=== PATIENT | male | born 1965 | race Caucasian/White ===

== ENCOUNTER 2018-11-05 21:23 | Observation (INO) | payer OTHER ==
[2018-11-05] MEDS ORDERED: FAMOTIDINE 20 MG/NACL 50 ML IV ONE (21:45)
[2018-11-05] MEDS ORDERED: HYDROmorphONE/DILAUDID 2 MG/ML INJ IVP ONE (21:45)
[2018-11-05] MEDS ORDERED: NS 1,000 ML IV ONE (21:45)
[2018-11-05] MEDS ORDERED: ONDANSETRON 4 MG/2 ML VIAL IVP ONE (21:45)
[2018-11-05] MEDS ORDERED: PANTOPRAZOLE SODIUM 40 MG VIAL IVP ONE (21:46)
[2018-11-05] MEDS ORDERED: HYDROmorphONE/DILAUDID 1 MG/ML INJ ONE (21:53)
--- NOTE | 2018-11-05 21:53 | EDPHY ---
H & P Time Seen by Provider: 11/05/18 21:33 HPI/ROS: HPI Abdominal pain. 53-year-old male by private vehicle with his . This patient has had ongoing mid to epigastric and right upper quadrant abdominal pain since February of this past year. He reports the pain usually comes on in waves after eating a meal. He reports that it has been relatively short-lived. He had a cholecystectomy years ago. He reports that this last Tuesday he had an episode of this pain which lasted a lot longer than it usually does. He states that it was worse with movement such as bending over and taking a deep breath. He reports that it is the same pain he has had in the past but just more intense. He describes it as aching and cramping. He saw his primary care physician on Tuesday. Blood work was done which was unremarkable according to the patient. She ordered stool studies for H pylori testing. He reports that at 3:45 p.m. He developed this pain again and has persisted since that time. He has not had any vomiting. His last meal was lunch 2 hr before onset of pain. He denies any bloody or melenic stool. Last bowel movement was this morning. No associated diarrhea. ROS: Constitutional: No fever, no chills. No weakness. Eyes: No discharge. No changes in vision. ENT: No sore throat. No nasal congestion or rhinorrhea. Respiratory: No cough. No shortness of breath. Cardiac: No chest pain, no palpitations. Gastrointestinal: As above, no vomiting, no diarrhea. Genitourinary: No hematuria. No dysuria or increased frequency with urination. Musculoskeletal: No back pain. No neck pain. No myalgias or arthralgias. Skin: No rashes. Neurological: No headache. No focal weakness or altered sensation. Past medical history: Cholecystectomy, depression, hyperlipidemia. Social history: Nonsmoker. No alcohol. Here with his . Physical Exam: General Appearance: Alert, no distress. This patient is responding to questions appropriately and in full sentences. This patient appears well- hydrated and well-nourished. Eyes: Pupils equal and round no pallor or injection. No lid edema, erythema or injection. Respiratory: There are no retractions, lungs are clear to auscultation with good air movement bilaterally. Cardiovascular: Regular rate and rhythm. No murmur. Gastrointestinal: Abdomen is soft with mild and vague right upper quadrant tenderness on palpation at the mid axillary line 2-3 cm below the costal margin , no masses, bowel sounds normal. No focal tenderness at McBurney's point. No Kaur sign. Neurological: Motor sensory function is grossly intact. Cranial nerves are normal. Gait is normal. Skin: Warm and dry, no rashes. Musculoskeletal: Neck is supple and nontender. Extremities are symmetrical. All joints range without pain or impingement. Psychiatric: No agitation. No depression. Database: EKG: EKG time is 9:47 p.m.; EKG shows a narrow complex normal sinus rhythm with a ventricular rate of 67. Right bundle branch block. Subtle depressions in V2 and V3. The TX, QRS, QT intervals are within normal limits. There are no ST-T wave changes indicative of ischemic or injury pattern. Patient has a history of RBBB. Interpreted by me. Imaging: Upright abdominal x-ray series: Significant for constipation, status post cholecystectomy. No obstructive process. No free air. Interpreted by me. Procedures: Emergency department course: Triage vitals reviewed. He is moderately hypertensive. Vital signs are otherwise normal. IV was placed. He was started on IV normal saline with 1 L to be given over the next hour. My suspicion is for a duodenal ulcer based on the location of his pain and the fact that he has had a cholecystectomy. He was given 0.5 mg of IV hydromorphone for pain and 4 mg of IV Zofran for nausea. He received IV Pepcid and Protonix as well. 10:45 p.m., the patient was re-evaluated, resting comfortably at this time. His pain is currently well controlled. Results of his diagnostic workup in the emergency department discussed with him and his . He has a significant elevation of his LFTs as well as conjugated bilirubin. Given how severe his pain was. Plan at this time will be to admit him to the hospitalist service. The patient and his endorse this plan I spoke with the on-call radiologist Dr. Anam Valiente. Case discussed with him in detail. He recommends a right upper quadrant ultrasound initially and then possibly a MRCP or HIDA scan tomorrow morning if the ultrasound is unremarkable. Hospitalist paged for admission. 10:55 p.m., I spoke with the on-call hospitalist, Dr. Matos. Case discussed and he with him in detail. He accepts this patient for admission but asked that we get a CT scan contrast enhanced instead of the ultrasound initially. He will follow up with an ultrasound if needed. He felt that this was a better study to look for a mass which would better explain the patient's progressive symptoms. CT scan results will be followed up by Dr. Matos. The patient and his were informed of imaging plan and plan for admission. His remaining emergency department course under my care has been uneventful. He was admitted to the hospitalist service in stable condition. Differential Diagnosis: The differential diagnosis on this patient includes but is not limited to choledocholithiasis, hepatitis, duodenal ulcer, gastric ulcer, colitis. Volvulus, perforated peptic ulcer, cholecystitis, hepatitis, pancreatitis unlikely. This represents a partial list of diagnoses considered. These considerations are based on history, physical exam, past history, reassessment and diagnostic testing. Smoking Status: Never smoked Constitutional: Initial Vital Signs Temperature (C) 36.6 C 11/05/18 21: Heart Rate 69 11/05/18 21:27 Respiratory Rate 18 11/05/18 21:27 Blood Pressure 161/98 H 11/05/18 21:27 O2 Sat (%) 98 11/05/18 21:27 O2 Delivery Mode Room Air Allergies/Adverse Reactions: No Known Allergies Allergy (Verified 11/06/18 09:47) Home Medications: Medication Instructions Recorded Omeprazole 20 mg PO DAILY 02/18/14 Methylphenidate HCl [Ritalin 5mg 5 mg PO BID@,14 PRN 11/05/18 (*)] ARIPiprazole [Abilify 2 mg (*)] 2 mg PO DAILY 11/06/18 traZODone [traZODONE 50MG (*)] 50 mg PO HS 11/06/18 Medical Decision Making - Data Points Laboratory Results: Laboratory Results 11/05/18 21:40 11/05/18 21:40 Medications Given: Discontinued Medications Enoxaparin Sodium (Lovenox) 40 mg SC DAILY FRANKIE Stop: 05/05/19 08:59 Last Admin: 11/06/18 08:06 Dose: 40 mg Hydromorphone HCl (Dilaudid) 0.5 mg IVP EDNOW ONE Stop: 11/05/18 21:46 Last Admin: 11/05/18 21:58 Dose: 0.5 mg Sodium Chloride (Ns) 1,000 mls @ 0 mls/hr IV EDNOW ONE; Wide Open PRN Reason: Protocol Stop: 11/05/18 21:46 Last Admin: 11/05/18 21:57 Dose: 1,000 mls Famotidine/Sodium Chloride (Pepcid 20 Mg (Premix)) 50 mls @ 200 mls/hr IV EDNOW ONE Stop: 11/05/18 21:59 Last Admin: 11/05/18 21:58 Dose: 50 mls Potassium Chloride/Dextrose/Sod Cl (D5w 1/2 Ns W/ 20 Kcl/L) 1,000 mls @ 100 mls /hr IV CONT FRANKIE Stop: 05/05/19 11:29 Last Admin: 11/06/18 11:57 Dose: 1,000 mls Ampicillin Sodium/Sulbactam (Sodium 3 gm/ Sodium Chloride) 100 mls @ 200 mls/ hr IV ONCE ONE PRN Reason: Protocol Stop: 11/06/18 13:29 Last Admin: 11/06/18 12:47 Dose: 100 mls Indomethacin (Indocin Rectal) Confirm Administered Dose 100 mg TX .STK-MED ONE Stop: 11/06/18 12:39 Last Admin: 11/06/18 13:30 Dose: 100 mg Midazolam HCl (Versed) 2 mg IVP ONCE ONE Stop: 11/06/18 12:48 Last Admin: 11/06/18 14:37 Dose: Not Given Ondansetron HCl (Zofran) 4 mg IVP EDNOW ONE Stop: 11/05/18 21:46 Last Admin: 11/05/18 21:57 Dose: 4 mg Pantoprazole Sodium (Protonix) 40 mg IVP EDNOW ONE Stop: 11/05/18 21:47 Last Admin: 11/05/18 22:02 Dose: 40 mg Point of Care Test Results: Chemistry 11/05/18 22:08 POC Troponin I 0.00 ng/mL ng/mL (0.00-0.08) Departure - Departure Disposition: [facility] Inpatient Acute Clinical Impression: Upper abdominal pain, Elevated liver function tests
[2018-11-05 21:54] LABS: PLATELET COUNT 229 10^3/uL (150-400)
[2018-11-05] MEDS ORDERED: PANTOPRAZOLE SODIUM 40 MG VIAL ONE (22:01)
[2018-11-05] MEDS ORDERED: ONDANSETRON 4 MG/2 ML VIAL IVP PRN (22:56)
[2018-11-05] MEDS ORDERED: ACETAMINOPHEN 325 MG TAB PO PRN (22:56)
[2018-11-05] MEDS ORDERED: ONDANSETRON DISINTEGRATING 4 MG TAB PO PRN (22:56)
[2018-11-05] MEDS ORDERED: HYDROmorphONE/DILAUDID 1 MG/ML INJ IVP PRN (22:56)
[2018-11-05] MEDS ORDERED: IOPAMIDOL (ISOVUE-300) 100 ML BTL ONE (22:58)
--- NOTE | 2018-11-06 03:13 | PDGENHP ---
History and Physical - Chief Complaint Abdominal pain - History of Present Illness 53 yo M w/ hx of GERD and cholecystectomy 4 years ago presents with abdominal pain. The patient has been having post-prandial, epi-gastric/RUQ pain since February of this year. Initially it mild mild to moderate and occurred once every few weeks. Over the last few months it has increased in frequency. Then, on Tuesday, he had a severe bout of pain. This resolved after a few hours. He went to his PCP who ordered some lab work (amylase, H. Pylori) and thought this could possibly be an ulcer. Today he had a recurrence of this very severe pain about 1 hour after eating a meal so he came to the ED for evaluation. In the ED his work-up was notable for elevated transaminases. A subsequent CT of his abdomen revealed only periportal inflammation, which per radiology can be seen with hepatitis or cholangitis. At the time of my evaluation his pain has resolved after Dilaudid IV. He has no infectious signs of symptoms at this time. He is being admitted for further work-up of this. He denies significant ETOH use, APAP use, or recent illness. He also denies melena or BRBPR. Case discussed with ED physician Dr. Mcmahan; records reviewed and summarized above. History Information - Allergies/Home Medication List Allergies/Adverse Reactions: No Known Allergies Allergy (Unverified 02/18/14 01:57) Home Medications: Omeprazole 20 mg PO 02/18/14 [Last Taken Unknown] Ritalin 10mg (*) 11/05/18 [Last Taken Unknown] I have personally reviewed and updated: family history, medical history - Past Medical History GERD - Surgical History Reports: cholecystectomy - Family History Additional family history: Denies family history of liver disease of autoimmune disease. - Social History Smoking Status: Never smoked Review of Systems Review of Systems: ROS: 10pt was reviewed & negative except for what was stated in HPI & below Physical Exam Physical Exam: Temp Pulse Resp BP Pulse Ox 36.5 C 70 17 130/87 H 93 11/06/18 00:09 11/06/18 00:09 11/06/18 00:09 11/06/18 00:09 11/06/18 00:09 Constitutional: no apparent distress, not in pain Eyes: PERRL, EOMI Ears, Nose, Mouth, Throat: moist mucous membranes, no oral mucosal ulcers Cardiovascular: regular rate and rhythym, no murmur, rub, or gallop Respiratory: no respiratory distress, clear to auscultation Gastrointestinal: normoactive bowel sounds, soft, non-tender abdomen Skin: warm, normal color Musculoskeletal: full muscle strength, no muscle tenderness Neurologic: AAOx3, CN II-XII Intact Psychiatric: interacting appropriately, not anxious Lab Data & Imaging Review 11/05/18 21:40 11/05/18 21:40 WBC 7.95 10^3/uL (3.80-9.50) 11/05/18 21:40 RBC 5.17 10^6/uL (4.40-6.38) 11/05/18 21:40 Hgb 15.6 g/dL (13.7-17.5) 11/05/18 21:40 Hct 45.9 % (40.0-51.0) 11/05/18 21:40 MCV 88.8 fL (81.5-99.8) 11/05/18 21:40 MCH 30.2 pg (27.9-34.1) 11/05/18 21:40 MCHC 34.0 g/dL (32.4-36.7) 11/05/18 21:40 RDW 12.5 % (11.5-15.2) 11/05/18 21:40 Plt Count 229 10^3/uL (150-400) 11/05/18 21:40 MPV 9.7 fL (8.7-11.7) 11/05/18 21:40 Neut % (Auto) 66.1 % (39.3-74.2) 11/05/18 21:40 Lymph % (Auto) 23.1 % (15.0-45.0) 11/05/18 21:40 [place] % (Auto) 8.1 % (4.5-13.0) 11/05/18 21:40 Eos % (Auto) 1.6 % (0.6-7.6) 11/05/18 21:40 Baso % (Auto) 0.8 % (0.3-1.7) 11/05/18 21:40 Nucleat RBC Rel Count 0.0 % (0.0-0.2) 11/05/18 21:40 Absolute Neuts (auto) 5.26 10^3/uL (1.70-6.50) 11/05/18 21:40 Absolute Lymphs (auto) 1.84 10^3/uL (1.00-3.00) 11/05/18 21:40 Absolute Monos (auto) 0.64 10^3/uL (0.30-0.80) 11/05/18 21:40 Absolute Eos (auto) 0.13 10^3/uL (0.03-0.40) 11/05/18 21:40 Absolute Basos (auto) 0.06 10^3/uL (0.02-0.10) 11/05/18 21:40 Absolute Nucleated RBC 0.00 10^3/uL (0-0.01) 11/05/18 21:40 Immature Gran % 0.3 % (0.0-1.1) 11/05/18 21:40 Immature Gran # 0.02 10^3/uL (0.00-0.10) 11/05/18 21:40 Sodium 139 mEq/L (135-145) 11/05/18 21:40 Potassium 3.7 mEq/L (3.5-5.2) 11/05/18 21:40 Chloride 104 mEq/L (97-110) 11/05/18 21:40 Carbon Dioxide 27 mEq/l (22-31) 11/05/18 21:40 Anion Gap 8 mEq/L (6-14) 11/05/18 21:40 BUN 12 mg/dL (7-23) 11/05/18 21:40 Creatinine 0.9 mg/dL (0.7-1.3) 11/05/18 21:40 Estimated GFR > 60 11/05/18 21:40 Glucose 110 mg/dL (70-100) H 11/05/18 21:40 Calcium 9.6 mg/dL (8.5-10.4) 11/05/18 21:40 Total Bilirubin 1.4 mg/dL (0.1-1.4) 11/05/18 21:40 Conjugated Bilirubin 1.1 mg/dL (0.0-0.5) H 11/05/18 21:40 Unconjugated Bilirubin 0.3 mg/dL (0.0-1.1) 11/05/18 21:40 AST 412 IU/L (17-59) H 11/05/18 21:40 ALT 702 IU/L (21-72) H 11/05/18 21:40 Alkaline Phosphatase 135 IU/L (38-126) H 11/05/18 21:40 POC Troponin I 0.00 ng/mL (0.00-0.08) 11/05/18 22:08 Total Protein 7.4 g/dL (6.3-8.2) 11/05/18 21:40 Albumin 4.6 g/dL (3.5-5.0) 11/05/18 21:40 Lipase 178 IU/L (23-300) 11/05/18 21:40 Acetaminophen < 10 mcg/mL (10-30) L 11/05/18 21:40 H. pylori IgG Antibody NEGATIVE (NEG) 11/05/18 21:40 Imaging Review: Imaging Impressions Abdomen X-Ray 11/05/18 21:46 Impression: Moderate constipation. Probable left nephrolithiasis. Status post cholecystectomy. Abdomen CT 11/05/18 22:55 Impression: 1. Status post cholecystectomy. Common bile duct is normal in size. Question mild periportal edema which is nonspecific and can be seen with hepatitis and cholangitis. 2. Moderate constipation. Results called and discussed with Dr. Bruno Yañez at 11/05/2018 23:25. Assessment & Plan Assessment: 53 yo M w/ hx of GERD s/p cholecystectomy presents with abdominal pain and abnormal LFTs. Plan: 1. Abdominal pain - Unclear etiology; post-prandial nature is suggestive of biliary etiology but patient is s/p cholecystectomy. AST/ALT 412/702 with mildly elevated conjugated bilirubin of 1.1. CT (personally reviewed, interpreted) demonstrates only periportal inflammation, which per radiology can be suggestive of hepatitis or cholangitis. He is currently displaying no infectious signs or symptoms. - Monitor CMP - Check acute hep panel, APAP level - Will order MRCP for further evaluation - GI consult in the morning, may benefit from EGD if MRCP is unrevealing - Maintain on clear liquids for now 2. Abnormal LFTs - AST/ALT 412/702 with mildly elevated conjugated bilirubin of 1.1. This is presumable related to process causing abdominal pain. - Monitor CMP - Acute management as above 3. GERD - Continue PPI pending reconciliation. Diet - Clears Code - Full Ppx - LMWH Dispo - Admit under observation status
[2018-11-06 03:31] LABS: HEPATITIS A ANTIBODY IGM (BCH) NEGATIVE (NEGATIVE); HEPATITIS B CORE AB IGM NEGATIVE (NEGATIVE); HEPATITIS B SURFACE ANTIGEN NEGATIVE (NEGATIVE); HEPATITIS C ANTIBODY TOTAL NEGATIVE (NEGATIVE)
[2018-11-06 06:23] LABS: PLATELET COUNT 189 10^3/uL (150-400)
[2018-11-06] MEDS ORDERED: ENOXAPARIN 40 MG/0.4 ML SYR SC SCH (09:00)
--- NOTE | 2018-11-06 11:11 | HOSPPROG ---
Hospitalist Progress Note Assessment/Plan: DIAGNOSES: * choledocholithiasis 4 x 6 mm distal common duct stone without duct dilation * abdominal pain likely due to above * elevated transaminases with minimal bilirubin elevation, normal alk-phos, suspect due to above but not the usual expected pattern PLANS: * NPO for this moment * Gastroenterology consult * Suspect he will need ERCP for stone removal I reviewed the case in detail today with Dr. Ramírez Blandon who will see the patient , and will most likely recommend ERCP today I reviewed all the above in detail as well as the MRI including the images with the patient at the bedside, as well as with his on the phone here today. They had many questions and I answered all of their questions in detail SUBJECTIVE: Feeling better right now since he has not eaten anything since yesterday afternoon No nausea no chills, currently no pain OBJECTIVE Vitals reviewed: Stable without fever Exam: alert oriented skin warm dry color ok, no jaundice resps not labored lungs clear BSs heart regular abd soft nondistended nontender, bowel sounds present limbs warm, no edema iv site ok Laboratory data: Transaminases up greater than 1200 today bilirubin at 1.9 alkaline phosphatase remains normal Mildly neutropenic 1400 today otherwise unremarkable CBC Basic met panel unremarkable MRCP done today, I reviewed images: There is of 4 x 6 mm distal common duct stone. Remarkably the common duct is not dilated nor of the intrahepatic ducts. Gallbladder is previously surgically removed. No other specific abnormalities identified Objective: Vital Signs Temp Pulse Resp BP Pulse Ox 36.7 C 76 14 123/84 H 93 11/06/18 08:00 11/06/18 08:00 11/06/18 08:00 11/06/18 08:00 11/06/18 08:00 Laboratory Results 11/06/18 06:03 11/06/18 06:03 11/05/18 11/06/18 11/07/18 06:59 06:59 06:59 Intake Total 1000 Balance 1000 - Time Spent With Patient Time Spent with Patient: greater than 35 minutes Time Spent with Patient: Greater than 35 minutes spent on this patients care, greater than 50% of time spent counseling, educating, and coordinating care regarding the above mentioned plan. ICD10 Worksheet Patient Problems: Problems Problem Status Onset Hepatitis Acute Transaminitis Acute Upper abdominal pain Acute
[2018-11-06] MEDS ORDERED: D5W 1/2 NS W/ 20 KCl/L 1,000 ML IV SCH (11:30)
[2018-11-06] MEDS ORDERED: IOTHALAMATE MEG (CONRAY) 50 ML VIAL IV ONE (12:08)
[2018-11-06] MEDS ORDERED: GLUCAGON HCL 1 MG VIAL ONE (12:08)
--- NOTE | 2018-11-06 12:11 | PDANEPAE ---
TJ Past Medical History - Cardiovascular History Hx Hypertension: No Hx Arrhythmias: No Hx Chest Pain: No Hx Coronary Artery / Peripheral Vascular Disease: No Hx CHF / Valvular Disease: No Hx Palpitations: No - Pulmonary History Hx COPD: No Hx Asthma/Reactive Airway Disease: No Hx Recent Upper Respiratory Infection: No Hx Oxygen in Use at Home: No Hx Sleep Apnea: Yes - Endocrine History Hx Diabetes: No Hypothyroid: No Hyperthyroid: No Obesity: no - Liver History Hx Hepatic Disorders: Yes Hepatic History Comment: Elevated transaminases - Neurological & Psychiatric Hx Hx Neurological and Psychiatric Disorders: Yes Neurological / Psychiatric History Comment: Ritalin TJ Review of Systems Review of Systems: TJ Patient History - Allergies Allergies/Adverse Reactions: No Known Allergies Allergy (Verified 11/06/18 09:47) - Home Medications Home Medications: Omeprazole 20 mg PO DAILY 02/18/14 [Last Taken Unknown] Methylphenidate HCl [Ritalin 5mg (*)] 5 mg PO BID@, PRN 11/05/18 [Last Taken Unknown] ARIPiprazole [Abilify 2 mg (*)] 2 mg PO DAILY 11/06/18 [Last Taken Unknown] traZODone [traZODONE 50MG (*)] 50 mg PO HS 11/06/18 [Last Taken Unknown] - Smoking Hx Smoking Status: Never smoked TJ Labs/Vital Signs - Labs Result Diagrams: 11/06/18 06:03 11/06/18 06:03 - Vital Signs Blood Pressure: 123/84 Heart Rate: 76 Respiratory Rate: 14 O2 Sat (%): 93 Height: 177.8 cm Weight: 87.1 kg TJ Physical Exam - Airway Neck exam: FROM Mallampati Score: Class 1 Mouth exam: normal dental/mouth exam - Pulmonary Pulmonary: clear to auscultation - Cardiovascular Cardiovascular: regular rate and rhythym - ASA Status ASA Status: II, III, E TJ Anesthesia Plan Anesthesia Plan: general endotracheal anesthesia
[2018-11-06] MEDS ORDERED: PROPOFOL 200 MG/20 ML VIAL ONE ×2 (12:19→12:57)
[2018-11-06] MEDS ORDERED: SUCCINYLCHOLINE CHLORIDE 200 MG/10 ML SYR IVP ONE (12:20)
[2018-11-06] MEDS ORDERED: ONDANSETRON 4 MG/2 ML VIAL ONE (12:22)
[2018-11-06] MEDS ORDERED: ROCURONIUM 50 MG/5 ML VIAL ONE (12:23)
[2018-11-06] MEDS ORDERED: INDOMETHACIN 50 MG SUPP PR ONE (12:38)
[2018-11-06] MEDS ORDERED: MIDAZOLAM 2 MG/2 ML VIAL IVP ONE (12:47)
[2018-11-06] MEDS ORDERED: MIDAZOLAM 2 MG/2 ML VIAL ONE ×2 (12:49→12:58)
[2018-11-06] MEDS ORDERED: AMPICILLIN/SULBACTAM 3 GM in NS 100 ML IV ONE (13:00)
--- NOTE | 2018-11-06 13:02 | ASMTCMCOM ---
CM Note CM Note Notes: Patient admitted with Choledocholithiasis, ERCP today. No CM needs identified at this time. Case Management available should something change. Plan: Independent Date Signed: 11/06/2018 01:02 PM Electronically Signed By:Sahara Solis RN
[2018-11-06] MEDS ORDERED: PROPOFOL/EMULSION 500 MG/50 ML BOTTLE IV ONE (13:07)
[2018-11-06] MEDS ORDERED: fentaNYL 100 MCG/2 ML INJ ONE (13:12)
[2018-11-06] MEDS ORDERED: ONDANSETRON 4 MG/2 ML VIAL IVP PRN (13:24)
[2018-11-06] MEDS ORDERED: ALBUTEROL 3 ML DEYVIAL IH PRN (13:24)
[2018-11-06] MEDS ORDERED: HYDROCODONE/APAP 5/325 TAB PO PRN (13:24)
[2018-11-06] MEDS ORDERED: DIAZEPAM 5 MG/ML 1 ML SYR IVP PRN (13:24)
[2018-11-06] MEDS ORDERED: LR 500 ML IV PRN (13:24)
[2018-11-06] MEDS ORDERED: LABETALOL HCL 5 MG/ML 20 ML MDV IVP PRN (13:24)
[2018-11-06] MEDS ORDERED: MEPERIDINE 25 MG/0.5 ML AMP IVP PRN (13:24)
[2018-11-06] MEDS ORDERED: PROMETHAZINE HCL 25 MG/ML INJ IVP PRN (13:24)
[2018-11-06] MEDS ORDERED: fentaNYL 100 MCG/2 ML INJ IVP PRN (13:24)
[2018-11-06] MEDS ORDERED: PHENYLEPHRINE HCL 100 MCG/ML SYR IVP PRN (13:24)
[2018-11-06] MEDS ORDERED: NALOXONE HCL 0.4 MG/ML INJ IVP PRN (13:24)
[2018-11-06] MEDS ORDERED: METOCLOPRAMIDE 10 MG/2 ML VIAL IVP PRN (13:24)
[2018-11-06] MEDS ORDERED: HYDROmorphONE/DILAUDID 2 MG/ML INJ IVP PRN (13:24)
[2018-11-06] MEDS ORDERED: oxyCODONE IR 5 MG TAB PO PRN (13:24)
[2018-11-06] MEDS ORDERED: GLYCOPYRROLATE 0.2 MG/1 ML VIAL ONE (13:31)
[2018-11-06] MEDS ORDERED: NEOSTIGMINE METHYLSULFATE 5 MG/5 ML SYR ONE (13:31)
--- NOTE | 2018-11-06 13:57 | GIREPORT ---
[facility] Surgical Services - Endoscopy Department Patient Name: Prince Ortiz Procedure Date: 11/06/2018 12:49 PM Patient Type: Inpatient Attending MD/ ER Physician: Ramírez Blandon MD Procedure: ERCP Indications: Note dictated, consult appreciated. Suspected bile duct stone. Providers: Ramírez Blandon MD, FACG Referring MD: [facility] Hospitalist service; Veena Figueredo MD Medicines: See the Anesthesia note for documentation of the administered medicatio ns Complications: No immediate complications. Description of Procedure: After obtaining informed consent, the scope was passed under direct vis ion. Throughout the procedure, the patient's blood pressure, pulse, and oxyg en saturations were monitored continuously. The Duodenalscope was introduc ed through the mouth, and advanced to the duodenum and used to inject cont rast into the bile duct. Findings: Normal stomach, except for retained food. Normal duodenum, ampulla. Selective cbd cannulation achieved, with a 6 mm filling defect seen. A 12 mm biliary sphincterotomy was made with a sphincterotome. There was no post-sphincterotomy bleeding. Using a 12 mm balloon, a 6 mm pigmented s tone was removed. Post balloon-occlusive cholangiogram normal. Of note, afte r sphincterotomy, some nodular invaginated tissue was seen at the ampulla . This was biopsied (but, suspect normal only). Contrast was injected. I personally interpreted the bile duct images. Estimated Blood Loss: none. Post Op Diagnosis: - cbd stone, removed. Recommendation: - feed - buffcap IV - ok to d/c home later today; as per hospitalist. I will sign off; we will arrange repeat LFTs in about three weeks, to m yuliya sure they normalize, as I suspect. Else, f/u PCP. Please call if we can be of further help [phone] Thank you for allowing me to help in the management of this patient. Attending Participation: I personally performed the entire procedure. Jamia Elmore MD Ramírez Blandon MD 11/06/2018 1:57:53 PM This report has been signed electronicallyPeter MD Jamia Number of Addenda: 0 Note Initiated On: 11/06/2018 12:49 PM [email or web address]
--- NOTE | 2018-11-06 14:02 | GCON ---
GI INPATIENT CONSULTATION DATE OF CONSULTATION: 11/06/2018 I was kindly requested to see the patient in consultation by Dr. Eitan Linda for a chief complaint of abdominal pain. He is a 53-year-old white male who had a cholecystectomy 4 years ago. He began to have epigastric and right upper quadrant pain in February. It has gone from mild to more moderate, and has increased in frequency. On Tuesday, he had a severe episode of pain, lasting several hours. Because of a recurrence, he presented to the hospital, and was admitted. Blood work shows an AST of 1229 and an ALT 1254. Total bilirubin is increased to 1.9. MRCP showed a 6 mm retained common bile duct stone. PAST MEDICAL HISTORY: 1. As above. 2. Otherwise, noncontributory. ALLERGIES: No known drug allergies. MEDICATIONS: Inpatient medications include Dilaudid as needed, Zofran as needed , IV fluids. SOCIAL HISTORY: He is . His 's name is Constance. FAMILY HISTORY: Negative for similar abdominal pain. REVIEW OF SYSTEMS: Positive pertinent review of systems as per my HPI. Otherwise, complete review of systems is negative. PHYSICAL EXAM: CONSTITUTIONAL: Nontoxic, pleasant gentleman. VITAL SIGNS: Stable. SKIN: Warm, dry. EYES: Pupils equal, round, reactive to light and accommodation. EARS, NOSE, MOUTH, AND THROAT: Oropharynx without masses, moist mucosa. SKIN: Warm, dry. CARDIOVASCULAR: Normal S2, normal PMI. RESPIRATORY: Lungs clear to auscultation and percussion anteriorly. GASTROINTESTINAL: Nontender, without masses. NEUROLOGIC: Grossly nonfocal, cranial nerves grossly intact. PSYCHIATRIC: Orientation, insight appropriate. MUSCULOSKELETAL: Strength grossly normal throughout, normal station. LABORATORIES: Include the above. Normal CBC. Normal lipase. CT scan of the abdomen and pelvis with IV contrast unremarkable. Viral hepatitis serologies negative. ASSESSMENT: Epigastric/right upper quadrant pain, with abnormal liver tests. Suspect indeed a retained common bile duct stone. PLAN: ERCP. Thank you for allowing me to help in the management of this patient. Copy requested to: Dr. Veena Goodson /[id number]/MODL MTDD
--- NOTE | 2018-11-06 14:05 | POSTANESTH ---
Post Anesthetic Evaluation Cardiovascular Status: Normal, Stable Respiratory Status: Normal, Stable Level of Consciousness/Mental Status: Can Participate in Eval Pain Control: Adequate, Prn Tx Ordered Nausea/Vomiting Control: Adequate, Prn Tx Ordered Complications Possibly Related to Anesthesia: None Noted
[2018-11-06 16:10] VITALS: BP 132/87
--- NOTE | 2018-11-06 17:33 | PDDCSUM ---
Discharge Summary Discharge Summary: DISCHARGE DIAGNOSES: * retained common bile duct stone with previous history of cholecystectomy, symptomatic with abdominal pain * status post successful removal of stone by ERCP and balloon sweep of bile duct CONSULTANTS: Dr. Ramírez Blandon COMPLICATIONS: None PROCEDURES: MRCP showing common bile duct stone ERCP with sphincterotomy and removal of common duct stone, with post procedure cholangiogram which was normal. There was some invagination noted at the tissue at the ampullary which did not show any definite mass but this tissue was biopsied for caution paranoid HOSPITAL COURSE SUMMARY: This patient who has a previous cholecystectomy 4 years ago comes in with worsening problems with postprandial right upper quadrant abdominal pain. He had some elevations of hepatic transaminases with normal bilirubin and alkaline phosphatase. CT scan of the abdomen showed only some mild periportal edema. MRCP was done which showed a single distal common bile duct stone without, min bile duct dilation or intrahepatic dilation. There are no pancreatic abnormalities, no signs of infection or mass. On the 2nd day the patient's transaminases increased from 700 range to the 1200 range with bilirubin up to 1.1. Consultation with Gastroenterology was crust was requested and Dr. Blandon saw the patient. The patient went to ERCP with successful removal of the stone after sphincterotomy. There was no evidence of bleeding or other complications. Following the procedure the patient feels well, is eating, is up walking about in the hallway. There are no fevers no changes in vital signs and his abdomen is pain free and without tenderness. At this point the patient is felt stable for discharge to home. He will follow up with Dr. Blandon in 2-3 weeks for reassessment and repeat liver enzyme blood test. Notably on the ERCP the patient did have some invagination of tissue at the ampulla without any definite mass but this area was to the biopsied as a precautionary measure. The pathology from the biopsy is pending at this point PENDING TEST RESULTS: Pathology from biopsy of ampulla MEDICATION CHANGES: None FOLLOW-UP PLAN: Dr. Bladnon in 2 3 weeks Greater than 35 minutes bedside and care coordination time today
--- NOTE | 2018-11-06 21:29 | CPEKG ---
Test Reason : OPEN Blood Pressure : / mmHG Vent. Rate : 067 BPM Atrial Rate : 067 BPM P-R Int : 141 ms QRS Dur : 129 ms QT Int : 419 ms P-R-T Axes : 064 -08 006 degrees QTc Int : 443 ms Sinus rhythm Right bundle branch block Left ventricular hypertrophy Confirmed by David Mcmahan ([id number] on 11/06/2018 9:28:55 PM Referred By: Confirmed By:David Mcmahan
== END 2018-11-06 17:46 | disposition home or self-care (01) ==
LOC: F3E 11-06 00:10
PROVIDERS: ADMIT Student in an Organized Health Care Education/Training Program; ATTEND Student in an Organized Health Care Education/Training Program
PROC: 0FC98ZZ Extirpation of Matter from Common Bile Duct, Via Natural or Artificial Opening Endoscopic (ICD-10-PCS; principal; 2018-11-05)
DX: K80.50 Calculus of bile duct without cholangitis or cholecystitis without obstruction (principal)
CPT/HCPCS: 43264; 74018; 74177; 74181; 76001; 93005; 96361; 96372; 96374; 96375; 99285; G0378; 84484-PO; G0472; G0480; J0295; J0330; J1170; J1610; J1650; J2250; J2405; J2704; J2710; J3010; Q9961; Q9967